=== PATIENT | female | born 1985 | race American Indian/Alaskan Native ===

== ENCOUNTER 2021-01-02 21:41 | Outpatient (CLI) | payer MEDICAID ==
[2021-01-02] MEDS ORDERED: LACTATED RINGERS 500 ML IV ONE (21:53)
[2021-01-02 22:02] VITALS: BP 104/60
[2021-01-02] MEDS ORDERED: TERBUTALINE 1 MG/1 ML INJ SUB-Q ONE (22:46)
[2021-01-02] MEDS ORDERED: TERBUTALINE 1 MG/1 ML INJ ONE (22:49)
[2021-01-02] MEDS: LACTATED RINGERS 1000 ML IV SOLN IV SCH (23:17)
[2021-01-03] MEDS: LACTATED RINGERS 1000 ML IV SOLN IV SCH
[2021-01-03 00:01] LABS: Bacteria,Urine 1+ /HPF (Negative); Bilirubin,Urine NEG (Negative); Blood,Urine NEG (Negative); Color,Urine Yellow (Yellow); Protein,Urine <15 mg/dL mg/dL (Negative); RBC,Urine < 1.0 /HPF (0.0-6.0); Urobilinogen,Urine < 2.0 mg/dL (<2.0)
== END 2021-01-03 00:51 | disposition home or self-care (01) ==
LOC: TRG 21:41 → APU 21:47 → TRG 01-03 00:51
PROVIDERS: ATTEND Obstetrics & Gynecology
DX: O26.893 Other specified pregnancy related conditions, third trimester (principal); R10.2 Pelvic and perineal pain; O09.523 Supervision of elderly multigravida, third trimester; Z3A.35 35 weeks gestation of pregnancy
CPT/HCPCS: 59025; 81001; 96360; J7120; 96361

== ENCOUNTER 2021-01-16 12:40 | Outpatient (CLI) | payer MEDICAID ==
[2021-01-16 13:24] VITALS: BP 103/68
[2021-01-16] MEDS ORDERED: LACTATED RINGERS 1,000 ML IV ONE (13:26)
[2021-01-16 14:04] LABS: Bacteria,Urine 1+ /HPF (Negative); Bilirubin,Urine NEG (Negative); Blood,Urine NEG (Negative); Color,Urine Yellow (Yellow); Protein,Urine <15 mg/dL mg/dL (Negative); Urobilinogen,Urine < 2.0 mg/dL (<2.0)
--- NOTE | 2021-01-16 18:19 | Ultrasound Report ---
ULTRASOUND OBSTETRIC LIMITED ULTRASOUND BIOPHYSICAL PROFILE INDICATION / CLINICAL INFORMATION: well-being. Decreased movement. Clinical Gestational Age (GA): 37.2 weeks.days COMPARISON: None available. FINDINGS: BREATHING MOVEMENT = 2 GROSS BODY MOVEMENT = 2 TONE = 2 QUALITATIVE AMNIOTIC FLUID VOLUME = 2 TOTAL BIOPHYSICAL SCORE = 8/8 HEART RATE (beats per minute): 117 AMNIOTIC FLUID INDEX (cm) = 11.4 (normal = 7-24 cm) PRESENTATION: Cephalic. ADDITIONAL FINDINGS: None. IMPRESSION: 1. Biophysical Score = 8/8 2. IRAIDA 11.4 cm Signer Name: Germán Aggarwal MD Signed: 01/16/2021 6:14 PM Workstation Name: [email or web address]
== END 2021-01-16 17:30 | disposition home or self-care (01) ==
LOC: APU 12:40 → TRG 12:40
PROVIDERS: ATTEND Obstetrics & Gynecology
DX: O09.893 Supervision of other high risk pregnancies, third trimester (principal); Z3A.37 37 weeks gestation of pregnancy
CPT/HCPCS: 59025; 76815; 76819; 81001

== ENCOUNTER 2021-01-19 17:34 | Inpatient (IN) | payer MEDICAID ==
[2021-01-19] MEDS: LACTATED RINGERS 1,000 ML IV SCH (18:45)
--- NOTE | 2021-01-19 20:50 | Ultrasound Report ---
ULTRASOUND OBSTETRIC LIMITED ULTRASOUND BIOPHYSICAL PROFILE INDICATION / CLINICAL INFORMATION: well-being. Vaginal bleeding and contractions. Clinical Gestational Age (GA): 37.5 weeks.days COMPARISON: 01/16/21 FINDINGS: BREATHING MOVEMENT = 2 GROSS BODY MOVEMENT = 2 TONE = 2 QUALITATIVE AMNIOTIC FLUID VOLUME = 2 TOTAL BIOPHYSICAL SCORE = 8/8 HEART RATE (beats per minute): 130 AMNIOTIC FLUID INDEX (cm) = 12.8 (normal = 7-24 cm) PRESENTATION: Cephalic. ADDITIONAL FINDINGS: The placenta is located in the posterior fundus, is grade 2 and is free of the o s. No evidence of abruption. IMPRESSION: 1. Biophysical Score = 8/8 2. IRAIDA 12.8 cm. Signer Name: Germán Aggarwal MD Signed: 01/19/2021 8:46 PM Workstation Name: [id number]
[2021-01-19 20:51] LABS: Bacteria,Urine 4+ /HPF (Negative); Bilirubin,Urine NEG (Negative); Blood,Urine LG (Negative); Color,Urine Red (Yellow)
[2021-01-19] MEDS ORDERED: LIDOCAINE-MPF (1%) 10 MG/1 ML VIAL 5 ML INFILTRATI ONE (22:30)
[2021-01-19] MEDS ORDERED: TERBUTALINE 1 MG/1 ML INJ SUB-Q PRN (23:19)
[2021-01-19] MEDS ORDERED: LIDOCAINE (2%) 20 MG/1 ML VIAL 20 ML MDV INFILTRATI ONE (23:19)
[2021-01-19] MEDS ORDERED: BUTORPHANOL 2 MG/1 ML INJ IV PRN ×2 (23:19)
[2021-01-19] MEDS ORDERED: fentaNYL 100 MCG/2 ML INJ IV PRN (23:19)
[2021-01-19] MEDS ORDERED: ePHEDrine SULFATE 50 MG/1 ML INJ IV PRN (23:19)
[2021-01-19] MEDS ORDERED: MINERAL OIL 30 ML ORAL LIQD PO PRN (23:19)
[2021-01-19] MEDS ORDERED: OXYTOCIN DRIP 30 UNITS/500 ML BAG IV SCH ×2 (23:45)
[2021-01-19] MEDS ORDERED: FLUCONAZOLE 200 MG TAB PO ONE (23:45)
[2021-01-20 01:17] LABS: Hematocrit 32.8 % (30.3-42.9); Mean Corpuscular HGB Conc 34 % (30-34); Mean Corpuscular Volume 88 fl (79-97); Platelet Count 275 K/mm3 (140-440); Red Blood Count 3.72 M/mm3 (3.65-5.03); Red Cell Distribution Width 16.2 % (13.2-15.2)
--- NOTE | 2021-01-20 01:53 | History and Physical Report ---
History of Present Illness Date of examination: 01/20/21 Date of admission: 01/19/21 23:20 Chief complaint: C/O uc since early evening History of present illness: 35 y/o presented to [facility] @ 37 5/7 wks with c/o uc since early evening. She denies VB or LOF and admitted to [facility]. Pt initiated her pnc at [facility] at 15 5/7 wks. She was co-managed by [facility] r/t [place]. Pt has a med hx of asthma, sickle cell trait, anemia, depression, ETOH abuse, h/o spon ab twins @ 18 wks in 2019, late entry to pnc, vit D def, and abnormal 1 hr gtt. Pt was not able to complete 3 hr gtt r/t n/v. Strong family hx of Diabetes. She had an IOL scheduled for 01/30/21. Pt was found to be in early labor and was admitted to L&D for delivery. 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: abnormal PAP smear, chlamydia Family/Genetic History: diabetes, heart disease, hypertension, cancer, sickle cell/trait, other (etoh abuse, stroke, ) Social history: single, alcohol abuse, full code - Obstetrical History Expected Date of Delivery: 02/04/21 Actual Gestation: 37 Week(s) 6 Day(s) : 8 Para: 1 Hx # Term Pregnancies: 1 Spontaneous Abortions: 1 Induced : 4 Number of Living Children: 1 Medications and Allergies Allergies Allergy/AdvReac Type Severity Reaction Status Date / Time No Known Allergies Allergy Verified 01/02/21 21:55 Home Medications Medication Instructions Recorded Confirmed Last Taken Type Nitrofurantoin Villalba/M-Cryst 100 mg PO Q12HR 7 Days #14 capsule 01/03/21 Unknown Rx [Macrobid CAP] Terconazole [Terazol 7 Vag Cream] 1 applicator VG QHS 7 Days #1 01/19/21 Unknown Rx cream.appl cephALEXin [Keflex] 500 mg PO Q12HR 7 Days #14 cap 01/19/21 Unknown Rx Active Meds: Active Medications Butorphanol Tartrate (Butorphanol 2 Mg/1 Ml Inj) 1 mg IV Q2H PRN PRN Reason: Pain, Moderate(4-6) LABOR PAIN Butorphanol Tartrate (Butorphanol 2 Mg/1 Ml Inj) 2 mg IV Q2H PRN PRN Reason: Pain , Severe (7-10) Cephalexin (Cephalexin 500 Mg Cap) 500 mg PO Q12HR REECE; Protocol Stop: 01/27/21 09:59 Ephedrine Sulfate (Ephedrine Sulfate 50 Mg/1 Ml Inj) 10 mg IV Q2M PRN PRN Reason: Hypotension Fentanyl (Fentanyl 100 Mcg/2 Ml Inj) 100 mcg IV Q2H PRN PRN Reason: Pain,Severe (7-10) LABOR PAIN Lactated Ringer's (Lactated Ringers) 1,000 mls @ 150 mls/hr IV DIRECT REECE Last Admin: 01/19/21 18:45 Dose: 150 mls/hr Documented by: Oxytocin/Sodium Chloride (Pitocin/Ns 30 Unit/500ml) 30 units in 500 mls @ 2 mls/hr IV TITR REECE; Protocol Oxytocin/Sodium Chloride (Pitocin/Ns 30 Unit/500ml) 30 units in 500 mls @ 40 mls/hr IV TITR REECE; Protocol Mineral Oil (Mineral Oil 30 Ml Oral Liqd) 30 ml PO QHS PRN PRN Reason: Constipation Terbutaline Sulfate (Terbutaline 1 Mg/1 Ml Inj) 0.25 mg SUB-Q ONCE PRN PRN Reason: Hyperstimulation/Hypertonicity Review of Systems Eyes: deferred Ears, nose, mouth and throat: deferred Breasts: normal - Vital Signs Vital signs: Vital Signs Pulse BP 97 H 105/66 01/19/21 17:54 01/19/21 17:54 Temp Pulse Resp BP Pulse Ox 97 H 105/66 01/19/21 17:54 01/19/21 17:54 - Physical Exam Breasts: Positive: normal Abdomen: Positive: normal appearance, soft, normal bowel sounds, other (gravid) Genitourinary (Female): Positive: normal external genitalia, normal perenium Vulva: both: normal Vagina: Positive: normal moisture Uterus: Positive: enlarged, normal contour, other (gravid) Adnexa: both: normal Anus/Rectum: Positive: normal perianal skin Extremities: Positive: normal - Obstetrical FHR: auscultation normal, category 1 Uterine Contraction Monitor Mode: External Cervical Dilatation: 4 Cervical Effacement Percentage: 60 station: -3 Uterine Contraction Pattern: Regular Uterine Tone Measurement Phase: Resting Uterine Contraction Intensity: Mild Results Result Diagrams: 01/20/21 00:40 Abnormal lab results 01/19/21 01/20/21 Range/Units 20:30 00:40 RDW 16.2 H (13.2-15.2) % Urine WBC (Auto) 122.0 H (0.0-6.0) /HPF U Epithel Cells (Auto) 45.0 H (0-13.0) /HPF All other labs normal. Assessment and Plan A: IUP@ 37.6 wks SS trait, UTI AMA, Asthma, Anemia Abnormal 1 hr gtt; 3 hr gtt not done r/t n/v Strong famly hx of DM Closely spaced preg Hx of abnormal pap 2006 conization Hx of depression with ETOH abuse Hx of 18wk twin preg loss within 12 mos of preg Late entry to pnc Vit D def IOL was reece for 01/30/21 P: Admit to L&D Continuos monitoring Cont Keflex as prescribed for uti Pain med/Epidural prn Pitocin per protocal Notify NICU of pt's hx Anticipate Monitor for s&s of pp depression Consulted with Dr Gallo - Patient Problems (1) Supervision of normal IUP (intrauterine ) in multigravida Current Visit: Yes Status: Acute (2) H/O ETOH abuse Current Visit: Yes Status: Acute (3) AMA (advanced maternal age) multigravida 35+ Current Visit: Yes Status: Acute (4) Anemia Current Visit: Yes Status: Acute (5) H/O: depression Current Visit: Yes Status: Acute (6) Asthma Current Visit: Yes Status: Acute (7) Sickle cell trait Current Visit: Yes Status: Acute
[2021-01-20] MEDS ORDERED: ePHEDrine SULFATE 50 MG/1 ML INJ IV PRN (02:41)
[2021-01-20] MEDS ORDERED: NALOXONE 2 MG/2 ML INJ IV PRN (02:41)
--- NOTE | 2021-01-20 02:42 | Anesthesia Consultation ---
Anesthesia Consult and Med Hx Date of service: 01/20/21 - Airway Anesthetic Teeth Evaluation: Good ROM Head & Neck: Adequate Mental/Hyoid Distance: Adequate Mallampati Class: Class II Intubation Access Assessment: Probably Good - Pulmonary Exam CTA: Yes - Cardiac Exam Cardiac Exam: RRR - Pre-Operative Health Status ASA Pre-Surgery Classification: ASA3 Proposed Anesthetic Plan: Epidural - Pulmonary Hx Asthma: Yes (LAST ATTACK YEARS AGO) - Cardiovascular System Hx Hypertension: No - Central Nervous System Hx Seizures: No Hx Psychiatric Problems: Yes - Endocrine Hx Renal Disease: No Hx Hypothyroidism: No Hx Hyperthyroidism: No - Hematic Hx Anemia: Yes Hx Sickle Cell Disease: No - Other Systems Hx Alcohol Use: No
--- NOTE | 2021-01-20 02:43 | Progress Note ---
Labor Epidural - Labor Epidural Start Time: 02:30 Stop Time: 02:33 Performed by:: RIK ALVAREZ Procedure: Patient is requesting epidural for labor pain. H&P, and labs reviewed. Procedure explained, questions answered, consent obtained. Patient in sitting position with blood pressure cuff and pulse ox on and working. Timeout performed immediately before start of procedure. Sterile chlorahexadine 0.5% prep/drape. 3 mL 1% lidocaine skin wheal at L[3]-L[4]. 18-gauge [employer] epidural needle advanced to [id number] with saline at [7] cm. 27-gauge spinal needle advanced until clear, free-flowing CSF. Intrathecal dexmedetomidine [5] mcg administered and needle removed. Epidural catheter advanced to [12] cm, negative aspiration for blood and csf, negative test dose 3 ml 1.5% lidocaine with epinephrine. Sterile steri-strips and tegaderm applied, followed by tape reinforcement. Patient tolerated procedure well.
[2021-01-20] MEDS: fentaNYL-BUPIV 2 MCG/ML-0.125% 200 MCG/100 ML BAG EPIDURAL SCH ×2 (03:26→12:32)
[2021-01-20] MEDS: LACTATED RINGERS 1,000 ML IV SCH (05:57)
[2021-01-20] MEDS ORDERED: AMPICILLIN/NS 2 GM/100 ML 2 GM/100 ML BAG IV ONE (09:14)
[2021-01-20] MEDS ORDERED: METOCLOPRAMIDE 10 MG/2 ML INJ IV PRN (09:30)
[2021-01-20] MEDS ORDERED: cephALEXin 500 MG CAP PO SCH (10:00)
[2021-01-20] MEDS ORDERED: AMPICILLIN 500 MG VIAL IV SCH (10:00)
--- NOTE | 2021-01-20 10:44 | Event Note ---
Date: 01/20/21 Assumed care of patient at 10:30 AM. Category 1 FHR tracing. SVE 4.5/90/-3 to - 4/OP. Contractions every 2 minutes. Uterus palpates soft between contractions. No lesions noted on careful exam under bright light. Patient positioned in upright position in bed. Patient is comfortable with epidural. VSS.
[2021-01-20] MEDS ORDERED: AMPICILLIN/NS 1 GM/50 ML 1 GM/50 ML BAG IV SCH (13:30)
[2021-01-20] MEDS ORDERED: LANOLIN/ZINC/DIMETHICONE (LANSINOH) 7 GM TP PRN (14:16)
[2021-01-20] MEDS ORDERED: MAGNESIUM HYDROXIDE (MOM) ORAL LIQD UDC PO PRN (14:16)
[2021-01-20] MEDS ORDERED: WITCH HAZEL/ GLYCERIN PAD TP PRN (14:16)
[2021-01-20] MEDS ORDERED: OXYTOCIN 10 UNIT/1 ML INJ IM ONE (14:20)
--- NOTE | 2021-01-20 14:28 | Procedure Note ---
OB Delivery Note - Delivery Date of Delivery: 01/20/21 Surgeon: BOB ZARATE Estimated blood loss: 200cc - Vaginal Delivery presentation: vertex Delivery position: OA Intrapartum events: shoulder dystocia Delivery augmentation: pitocin Delivery monitor: external FHT, external uterine Route of delivery: Delivery placenta: spontaneous Delivery cord: 3 umbilical vessels Episiotomy: none Delivery laceration: none Anesthesia: epidural Delivery comments: Spontaneous vaginal delivery at 13:59 of liveborn male weighing 6 lb 7.9 oz. (2947 grams) over intact perineum with apgars of 6/8. Left anterior shoulder dystocia, resolved with McRobert's maneuver, suprapubic pressure, and delivery of posterior shoulder. Head to body delivery interval less than 1 minute. Baby placed briefly on mom's abdomen; 3 vessel cord double clamped and cut and baby taken to radiant warmer to be evaluated by NICU. Spontaneous cry and respirations. Spontaneous delivery of intact placenta and membranes. EBL 200 cc. Pitocin given after delivery of placenta. Fundus firm and midline. No lacerations noted. Vaginal sweep negative. Sponge count correct. Baby moving all extremities well. Mother and baby stable.
[2021-01-20] MEDS ORDERED: IBUPROFEN 800 MG TAB ONE (14:58)
[2021-01-20] MEDS ORDERED: IBUPROFEN 800 MG TAB PO ONE (15:00)
[2021-01-20] MEDS: IBUPROFEN 600 MG TAB PO SCH (21:18)
[2021-01-20] MEDS: DOCUSATE SODIUM 100 MG CAP PO SCH (21:18)
[2021-01-20] MEDS: HYDROcodone/ACETAMINOPHEN 5-325 MG TAB PO PRN (22:17)
[2021-01-20] MEDS ORDERED: SODIUM CHLORIDE 0.45% 1000 ML 1,000 ML IV SCH (23:00)
[2021-01-20] MEDS ORDERED: SODIUM CHLORIDE 0.9% 500 ML 500 ML ONE (23:08)
[2021-01-20] MEDS: cefTRIAXone/NS 1 GM/50 ML 1 GM/50 ML BAG IV SCH (23:21)
[2021-01-20] MEDS ORDERED: SODIUM CHLORIDE 0.9% 500 ML 500 ML IV SCH (23:45)
[2021-01-21] MEDS: IBUPROFEN 600 MG TAB PO SCH ×4 (03:49→18:32)
[2021-01-21 05:30] LABS: Hematocrit 34.5 % (30.3-42.9); Hemoglobin 11.8 gm/dl (10.1-14.3)
[2021-01-21] MEDS: HYDROcodone/ACETAMINOPHEN 5-325 MG TAB PO PRN ×2 (07:32→20:55)
--- NOTE | 2021-01-21 11:33 | Progress Note ---
Assessment and Plan - Patient Problems (1) Status post vaginal delivery Current Visit: Yes Status: Acute Plan to address problem: Continue inpatient management. Consider delivery in 24-48H. Meeting goals. Breast/bottle feeding. (2) Asthma Current Visit: Yes Status: Acute Plan to address problem: --albuterol PRN (3) H/O ETOH abuse Current Visit: Yes Status: Acute Plan to address problem: SW consulted (4) H/O: depression Current Visit: Yes Status: Acute Plan to address problem: --Psych consulted prior to discharge. Subjective - Subjective Date of service: 01/21/21 Principal diagnosis: PPD1 s/p c/b dystocia Interval history: Patient reports that she is doing overall well but reports "she had a rough one" with the delivery yesterday given dystocia. Mood good. Baby doing well. Breast/bottle feeding. Patient reports: appetite normal, voiding normally, pain well controlled, flatus : doing well Objective - Vital Signs Latest vital signs: Vital Signs Temp Pulse Resp BP BP Pulse Ox 01/21/21 08:10 98.6 F 77 20 107/73 98 01/21/21 07:32 18 01/21/21 05:00 98.7 F 77 20 106/71 99 01/21/21 03:49 18 01/21/21 00:27 98.4 F 71 20 115/80 100 01/20/21 22:17 20 01/20/21 18:45 98.6 F 84 114/67 01/20/21 17:06 118 H 121/90 01/20/21 16:50 88 120/65 01/20/21 16:35 80 121/62 01/20/21 16:20 90 125/64 01/20/21 16:05 95 H 123/65 01/20/21 15:50 96 H 134/70 01/20/21 15:35 88 125/66 01/20/21 15:20 96 H 118/61 01/20/21 15:05 116 H 116/62 01/20/21 14:50 100 H 119/60 01/20/21 14:35 106 H 127/73 01/20/21 14:26 102 H 100 01/20/21 14:21 100 H 98 01/20/21 14:20 105 H 118/66 01/20/21 14:16 103 H 99 01/20/21 14:15 98.2 F 01/20/21 14:11 109 H 99 01/20/21 14:06 111 H 98 01/20/21 14:01 130 H 100 01/20/21 13:56 113 H 99 01/20/21 13:51 121 H 98 01/20/21 13:46 7 L 01/20/21 13:41 103 H 100 01/20/21 13:36 108 H 100 01/20/21 13:33 107 H 92 01/20/21 13:31 109 H 99 01/20/21 13:29 113 H 106/63 01/20/21 13:26 97 H 98 01/20/21 13:21 98 H 99 01/20/21 13:16 101 H 99 01/20/21 13:11 100 H 98 01/20/21 13:06 101 H 99 01/20/21 13:03 56 L 83 L 01/20/21 13:01 108 H 99 01/20/21 12:59 110 H 104/67 01/20/21 12:56 111 H 98 01/20/21 12:51 94 H 85 01/20/21 12:46 100 H 100 01/20/21 12:41 96 H 97 01/20/21 12:36 98 H 99 01/20/21 12:31 97 H 98 01/20/21 12:30 96 H 112/71 01/20/21 12:26 108 H 96 01/20/21 12:21 90 99 01/20/21 12:17 86 93 01/20/21 12:16 85 98 01/20/21 12:11 92 H 98 01/20/21 12:06 84 97 01/20/21 12:01 81 99 01/20/21 11:59 82 109/73 01/20/21 11:56 82 97 01/20/21 11:51 85 98 01/20/21 11:46 94 H 98 01/20/21 11:41 99 H 96 01/20/21 11:36 83 95 01/20/21 11:35 86 93 01/20/21 11:31 77 94 01/20/21 11:30 89 94 Intake and Output 01/20/21 01/21/21 01/21/21 23:59 07:59 15:59 Intake Total 600 240 Output Total 900 900 Balance -900 -300 240 Intake: Oral 240 240 Intake, Free Water 360 Output: Urine 900 900 Void 900 900 Other: Total, Intake Amount 240 240 Total, Output Amount 900 400 # Voids Void 1 - Exam Abdomen: Present: normal appearance, normal bowel sounds Uterus: Present: firm, fundal height below umbilicus
[2021-01-21] MEDS: DOCUSATE SODIUM 100 MG CAP PO SCH ×2 (12:20→22:46)
--- NOTE | 2021-01-21 18:52 | Post Anesthesia Evaluation ---
- Post Anesthesia Evaluation Patient Participated: Yes Airway Patent: Yes Stable Respiratory Function: Yes Nausea/Vomiting: No Temp > 96.8F: Yes Pain Manageable: Yes Adequeate Hydration: Yes Anesthesia Complications: No Block Receding Appropriately: Yes
[2021-01-21] MEDS: cefTRIAXone/NS 1 GM/50 ML 1 GM/50 ML BAG IV SCH (22:46)
[2021-01-22] MEDS: IBUPROFEN 600 MG TAB PO SCH ×3 (06:48→12:19)
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
[2021-01-22] MEDS: DOCUSATE SODIUM 100 MG CAP PO SCH (12:19)
--- NOTE | 2021-01-22 13:29 | Progress Note ---
Assessment and Plan A: day 2 S/P . P: Discharge patient home today. Discussed with patient discharge instructions and warning signs. Advised patient to continue taking her vitamins at home. Advised patient to avoid intercourse, lifting, housework. Advised patient to follow up at [facility] office in 6 weeks. Patient v oiced understanding of all instructions. Subjective - Subjective Date of service: 01/22/21 Principal diagnosis: PPD2 s/p c/b dystocia Interval history: Doing well. Desires discharge home. Cleared by psych and case management. Patient reports: appetite normal, voiding normally, pain well controlled, flatus, ambulating normally, no dizzy ambulation, no nauseated [facility]: doing well Objective - Vital Signs Latest vital signs: Vital Signs Temp Pulse Resp BP Pulse Ox 01/22/21 08:17 98.0 F 68 18 111/77 98 01/22/21 06:48 16 01/22/21 00:10 98.5 F 64 20 120/80 01/21/21 20:55 18 01/21/21 16:26 98.7 F 85 20 107/72 97 Intake and Output 01/21/21 01/22/21 01/22/21 23:59 07:59 15:59 Intake Total 200 240 240 Output Total 200 Balance 0 240 240 Intake: Oral 200 240 240 Output: Urine 200 Void 100 Other: Total, Intake Amount 200 240 240 Total, Output Amount 100 Voiding Method Toilet # Voids 1 Void 1 1 1 - Exam Cardiovascular: Present: Regular rate Lungs: Present: Clear to auscultation Abdomen: Present: normal appearance, soft. Absent: distention, tenderness, guarding, rigidity Uterus: Present: normal, firm, fundal height below umbilicus. Absent: bogginess, tenderness Extremities: Present: normal. Absent: tenderness, edema
--- NOTE | 2021-01-22 13:36 | Discharge Summary ---
Providers - Providers Date of Admission: 01/19/21 23:20 Date of discharge: 01/22/21 Attending physician: BRIDGER BEAULIEU 01/21/21 11:33 Consult to Case Management [CONS] Routine Services Needed at Discharge: Other Notified:: yes Phone number called:: [phone] Was contact made?: No Time called:: 15:08 Comment:: hx alcohol abuse, recently Additional Physician Instructions: computer input 01/22/21 08:58 Consult to Mental Health [CONS] Routine Reason For Exam: depression, history of ETOH abuse Primary care physician: SYLVAIN CANALES MD Hospitalization Reason for admission: active labor Delivery: Episiotomy: none Laceration: none Other procedures: none complications: none Discharge diagnosis: IUP at term delivered baby: male Pertinent studies: Labs Hospital course: Stable hospital course. Condition at discharge: Good Disposition: DC-01 TO HOME OR SELFCARE - Discharge Diagnoses (1) Term delivered Status: Acute Plan - Discharge Medications Prescriptions: Terconazole [Terazol 7 Vag Cream] 1 applicator VG QHS 7 Days #1 cream.appl cephALEXin [Keflex] 500 mg PO Q12HR 7 Days #14 cap - Provider Discharge Summary Activity: routine, no sex for 6 weeks, no heavy lifting 4 weeks, no strenuous exercise Diet: routine Instructions: routine Additional instructions: Continue taking your vitamin daily at home. Call your doctor immediately for: * Fever > 100.5 * Heavy vaginal bleeding ( >1 pad per hour) * Severe persistent headache * Shortness of breath * Reddened, hot, painful area to leg or breast - Follow up plan Follow up: SYLVAIN CANALES MD [Primary Care Provider] - 6 Weeks
[2021-01-22 15:13] VITALS: BP 140/64
== END 2021-01-22 14:30 | disposition home or self-care (01) | DRG 774 ==
LOC: TRG 17:34 → APU 17:36 → TRG 23:19 → LD 23:20 → OB 01-20 18:46
PROVIDERS: ADMIT Obstetrics & Gynecology; ATTEND Obstetrics & Gynecology
PROC: 10E0XZZ Delivery of Products of Conception, External Approach (ICD-10-PCS; principal; 2021-01-20)
PROC: 3E0234Z Introduction of Serum, Toxoid and Vaccine into Muscle, Percutaneous Approach (ICD-10-PCS; 2021-01-20)
PROC: 00HU33Z Insertion of Infusion Device into Spinal Canal, Percutaneous Approach (ICD-10-PCS; 2021-01-20)
DX: O99.52 Diseases of the respiratory system complicating childbirth (principal); O75.3 Other infection during labor; Z37.0 Single live birth; Z20.822 Contact with and (suspected) exposure to COVID-19; O99.02 Anemia complicating childbirth; D57.3 Sickle-cell trait; O99.344 Other mental disorders complicating childbirth; F32.9 Major depressive disorder, single episode, unspecified; Z3A.37 37 weeks gestation of pregnancy; Z83.3 Family history of diabetes mellitus; Z80.9 Family history of malignant neoplasm, unspecified; Z82.3 Family history of stroke; Z82.49 Family history of ischemic heart disease and other diseases of the circulatory system; Z84.89 Family history of other specified conditions; Z91.040 Latex allergy status; J45.909 Unspecified asthma, uncomplicated
CPT/HCPCS: 36415; 59025; 76815; 76819; 81001; 83036; 85014; 85018; 85027; 86850; 86900; 86901; 96360; G0378; J0290; J0696; J2590; J2765; J7040; J7120; U0003